=== PATIENT | male | born 1975 | race Caucasian/White ===

== ENCOUNTER 2017-01-10 20:41 | Emergency (ER) | payer OTHER ==
[~2017-01-10] VITALS: Ht 182.9 cm; Wt 81.9 kg
[2017-01-10 21:07] VITALS: TEMP 36.7; O2SAT 96; Ht 182.9 cm; Wt 81.9 kg
[2017-01-10] MEDS ORDERED: LISI-461 PO (21:46)
--- NOTE | 2017-01-10 21:46 | EMERGENCY ROOM VISIT NOTE ---
History First contact with patient: 21:27 Chief Complaint: FINGER PAIN Stated Complaint: LEFT THUMB SMASHED WITH HAMMER History of Present Illness The patient is a 41 year old male who presents to the Emergency Room with complaints of left thumb pain after accidentally hitting the thumb with a hammer prior to arrival. 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 He notes instant swelling. He also has some tingling in the distal aspect of the thumb. He did not take anything for pain. He denies any pain back into the hand or wrist. Review of Systems 6 system review negative. Please see pertinent positives in the history of present illness section. Past Medical/Surgical History Hypertension Cholecystectomy Family History Diabetes, hypertension Social History Smoking Status: Current Every Day Smoker Drug Use: none Marital Status: Housing Status: lives with significant other Current/Historical Medications Scheduled Atorvastatin (Lipitor), 20 MG PO DAILY Citalopram Hydrobromide (Citalopram Hydrobromide), 20 MG PO DAILY Lisinopril (Zestril), 10 MG PO DAILY Omeprazole (Prilosec), 40 MG PO DAILY Physical Exam Vital Signs Date Time Temp Pulse Resp B/P (MAP) Pulse Ox O2 Delivery O2 Flow Rate FiO2 01/10/17 21:07 36.7 70 16 124/68 96 Room Air Physical Exam VITALS: Vitals are noted on the nurse's note and reviewed by myself. Vital signs stable. GENERAL: 41-year-old male, in no acute distress, nondiaphoretic, well-developed well-nourished. SKIN: The skin was intact HEAD: Normocephalic, atraumatic MUSCULOSKELETAL: L THUMB: Swelling and tenderness noted over the interphalangeal joint. Very limited range of motion. Capillary refill less than 2 seconds. Well-healing incisional scar noted over the interphalangeal joint sensation in the distal aspect of the finger is intact. NEURO: Patient was alert and oriented to person place and time. Normal sensation to touch. No focal neurological deficits. Medical Decision & Procedures ER Provider Diagnostic Interpretation: LEFT THUMB RADIOGRAPHS CLINICAL HISTORY: Left thumb pain following injury. COMPARISON: None FINDINGS: Alignment of the left thumb is anatomic. There is minimal ossific/calcific density adjacent to the proximal phalanx of the left thumb. No acute fracture is identified. There is soft tissue swelling of the left thumb. IMPRESSION: 1. No acute fracture or dislocation of the left thumb. 2. Minimal calcific/ossific density adjacent to the proximal phalanx of the left thumb. This is age indeterminate but probably not acute. This could be correlated with previous surgical/trauma history. Electronically signed by: Akhil Morel M.D. 01/10/2017 10:52 PM Dictated Date/Time: 01/10/2017 10:49 PM The status of this report is Signed. Draft = Not yet reviewed or approved by Radiologist. Signed = Reviewed and approved by Radiologist. ED Course The patient was seen and examined He declined pain medication Imaging was performed and reviewed A metal splint was applied. The findings were discussed the patient. He voiced understanding, and was discharged in good condition Medical Decision Differential diagnosis: Contusion, fracture, subungual hematoma This patient is a pleasant 41-year-old female that presents emergency department with thumb pain after hitting it with a hammer. He was concerned given his recent surgery and the thumb. On exam, he was tender over the interphalangeal joint. Imaging was performed and showed no acute fracture. He was given a metal splint for comfort. He was instructed to take ibuprofen for pain, and apply ice and elevate the thumb as much as possible over the next 48 hours. He will follow-up with his hand surgeon next week. Medication Reconcilliation Current Medication List: was personally reviewed by me Blood Pressure Screening Patient's blood pressure: Normal blood pressure Impression Primary Impression: Thumb contusion Departure Information Dispostion Home / Self-Care Referrals No Doctor, Assigned (PCP) Patient Instructions My [facility] Additional Instructions You were evaluated in the emergency department for some pain. X-rays did not show any evidence of fracture Please apply ice for 20 minute intervals and elevate the thumb as much as possible over the next 48 hours. Rest the thumb in a splint for the next 48 hours. Ibuprofen 600 mg every 8 hours as needed for pain If there is no improvement, please see your orthopedic surgeon within the next week. You are welcome to return to the emergency department with any new or worsening symptoms
[2017-01-10] MEDS ORDERED: ATOR-22 PO (21:47)
[2017-01-10] MEDS ORDERED: PRLSR20 PO (21:48)
[2017-01-10] MEDS ORDERED: OMEP40CA41 PO (21:58)
[2017-01-10] MEDS ORDERED: CITA20TA4 PO (22:04)
--- NOTE | 2017-01-10 22:53 | DIAGNOSTIC IMAGING REPORT ---
LEFT THUMB RADIOGRAPHS CLINICAL HISTORY: Left thumb pain following injury. COMPARISON: None FINDINGS: Alignment of the left thumb is anatomic. There is minimal ossific/calcific density adjacent to the proximal phalanx of the left thumb. No acute fracture is identified. There is soft tissue swelling of the left thumb. IMPRESSION: 1. No acute fracture or dislocation of the left thumb. 2. Minimal calcific/ossific density adjacent to the proximal phalanx of the left thumb. This is age indeterminate but probably not acute. This could be correlated with previous surgical/trauma history. Electronically signed by: Akhil Morel M.D. 01/10/2017 10:52 PM Dictated Date/Time: 01/10/2017 10:49 PM
[2017-01-10 23:15] VITALS: BP 128/76; PULSE 68
== END 2017-01-10 23:15 | disposition home or self-care (01) ==
LOC: C.EDB 20:45 → C.EDD 23:15
DX: S60.012A Contusion of left thumb without damage to nail, initial encounter (principal); W22.8XXA Striking against or struck by other objects, initial encounter; I10 Essential (primary) hypertension; F17.200 Nicotine dependence, unspecified, uncomplicated; Z79.899 Other long term (current) drug therapy; Z90.49 Acquired absence of other specified parts of digestive tract

== ENCOUNTER → 2017-12-07 | Day surgery (SDC) | payer OTHER ==
[2017-12-06 09:57] VITALS: Ht 177.2 cm; Wt 76.4 kg
[~2017-12-07] VITALS: Ht 177.2 cm; Wt 76.4 kg
[~2017-12-07] MED LIST: ATOR-22 PO; CHOL1CAP95 PO; FENTANYL CITRATE INJ 50 MCG/1 ML 2 ML VIAL ONE; FLUO40CA8 PO; HYDR25TA4 PO; LIDOCAINE HCL 2% 2 ML VIAL (20MG/ML) ONE; LISI5TAB PO; MECL1TAB42 PO; MIDAZOLAM HCL 1 MG/ML 2ML VIAL ONE; OMEP40CA41 PO; PROPOFOL IV EMULSION 10 MG/ML 20 ML VIAL ONE; SODIUM CHLORIDE 0.9% 500ML 500 ML IV ONE
--- NOTE | 2017-12-07 09:41 | Endo History and Physical ---
History & Physical Date of Service: Dec 07, 2017. Chief Complaint: Rectal bleeding, hemorrhoids Referring Physician: AIDAN Walsh History of Present Illness 42 yo presenting for evaluation of painless rectal bleeding for colonoscopy Past Surgical History Hx Cardiac Surgery: No Hx Internal Defibrillator: No Hx Pacemaker: No Hx Abdominal Surgery: Yes (ANNIKA) Hx of Implantable Prosthesis: No Hx Post-Op Nausea and Vomiting: No Hx Cancer Surgery: No Hx Thoracic Surgery: No Hx Orthopedic: Yes (LEFT ARM RECONSTRUCTION, RT SHOULDER RECONSTRUCTION) Hx Urinary Tract Surgery: No Family History Colon CA Social History Smoking Status: Current Every Day Smoker Hx Substance Use: Yes (MARIJUANA OCCASIONALLY (ADVISED)) Hx Alcohol Use: No Allergies Coded Allergies: No Known Allergies (Unverified , 12/06/17) Current Medications Reported Home Medications Medications Dose Route/Sig Max Daily Dose Days Date Category Meclizine Hcl 25 Mg Tab 1 Tab PO TID PRN 12/06/17 Reported Prozac (Fluoxetine HCl) 40 Mg Cap 40 Mg PO QAM 12/06/17 Reported Lipitor (Atorvastatin Calcium) 20 Mg Tab 20 Mg PO QAM 12/06/17 Reported Prinivil (Lisinopril) 5 Mg Tab 5 Mg PO QAM 12/06/17 Reported Vitamin D3 (Cholecalciferol) 50,000 Unit Cap 1 Cap PO WK 12/06/17 Reported Prilosec (Omeprazole) 40 Mg Cap 40 Mg PO QAM 12/06/17 Reported Hctz (Hydrochlorothiazide) 25 Mg Tab 25 Mg PO QAM 12/06/17 Reported Vital Signs Weight (Kilograms): 76.36 Height (Feet): 5 Height (Inches): 9.75 Date Time Temp Pulse Resp B/P (MAP) Pulse Ox O2 Delivery O2 Flow Rate FiO2 12/07/17 09:06 36.6 72 18 122/82 (95) 97 Room Air Physical Exam General Appearance: WD/WN, no apparent distress Respiratory/Chest: Respiratory effort: no dyspnea Auscultation: breath sounds normal, CTA except as noted Cardiovascular: Apical Impulse: not displaced Heart Auscultation: RRR, normal S1, normal S2 Abdomen: Bowel Sounds: normal Inspection & Palpation: soft, non-distended, no masses Assessment and Plan 42 yo presenting for evaluation of painless rectal bleeding Proceed with colonoscopy
--- NOTE | 2017-12-07 10:34 | GI REPORT ---
Patient Name: Jacob Dill Procedure Date: 12/07/2017 9:28 AM Date of : 1975 Admit Type: Outpatient Age: 42 Gender: Male Attending MD: Asif Cespedes MD Procedure: Colonoscopy Providers: Asif Cespedes MD Referring MD: Dana Montanez Indications: Rectal bleeding Medicines: Monitored Anesthesia Care Complications: No immediate complications. Estimated blood loss: None. Estimated Blood Loss: Estimated blood loss: none. Procedure: Pre-Anesthesia Assessment: - Pre-Anesthesia Assessment: - Prior to the procedure, a History and Physical was performed, and patient medications, allergies and sensitivities were reviewed. The patient's tolerance of previous anesthesia was reviewed. Please see Apixio for complete details. - The risks and benefits of the procedure and the sedation options and risks were discussed with the patient. All questions were answered and informed consent was obtained. - Patient identification and proposed procedure were verified prior to the procedure by the physician and the nurse. The procedure was verified in the pre-procedure area in the procedure room. After obtaining informed consent, the endoscope was passed carefully and meticuously under direct vision and only advanced when the lumen was clearly identified, C02 insuflation was utilized throughout the entirity of the procedure. Throughout the procedure, the patient's blood pressure, pulse, and oxygen saturations were monitored continuously. After I obtained informed consent, the scope was passed under direct vision. Throughout the procedure, the patient's blood pressure, pulse, and oxygen saturations were monitored continuously. The scope was introduced through the anus and advanced to the terminal ileum, with identification of the appendiceal orifice and IC valve. The colonoscopy was performed without difficulty. The patient tolerated the procedure well. The quality of the bowel preparation was good. Findings: Four sessile polyps were found in the ascending colon. The polyps were 4 to 7 mm in size. These polyps were removed with a cold snare. Resection and retrieval were complete. A 6 mm polyp was found in the descending colon. The polyp was sessile. The polyp was removed with a cold snare. Resection and retrieval were complete. A 10 mm polyp was found in the sigmoid colon. The polyp was semi-pedunculated. The polyp was removed with a saline injection-lift technique using a hot snare at 20 alfonso. Resection and retrieval were complete using a suction (via the working channel). Two hemostatic clips were successfully placed (MR conditional). Multiple small-mouthed diverticula were found in the sigmoid colon. Internal hemorrhoids were found during retroflexion. The exam was otherwise without abnormality on direct and retroflexion views. Impression: - Four 4 to 7 mm polyps in the ascending colon, removed with a cold snare. Resected and retrieved. - One 6 mm polyp in the descending colon, removed with a cold snare. Resected and retrieved. - One 10 mm polyp in the sigmoid colon, removed using injection-lift and a hot snare. Resected and retrieved. Clips (MR conditional) were placed. - Diverticulosis in the sigmoid colon. - Internal hemorrhoids. - The examination was otherwise normal on direct and retroflexion views. Recommendation: - Discharge patient to home (with escort). - Repeat colonoscopy in 1 year for surveillance based on pathology results. - Return to referring physician as previously scheduled. Asif Cespedes MD 12/07/2017 10:33:55 AM This report has been signed electronically. Note Initiated On: 12/07/2017 9:28 AM Number of Addenda: 0 I attest to the content of the Intraoperative Record and orders documented therein, exceptions below {[id number]}
--- NOTE | 2017-12-07 10:36 | Discharge Instructions ---
Endoscopy Patient Instructions Date / Procedure(s) Performed Dec 07, 2017. Colonoscopy Allergy Information Coded Allergies: No Known Allergies (Unverified , 12/06/17) Discharge Date / Findings Dec 07, 2017. Findings: Four sessile polyps were found in the ascending colon. The polyps were 4 to 7 mm in size. These polyps were removed with a cold snare. Resection and retrieval were complete. A 6 mm polyp was found in the descending colon. The polyp was sessile. The polyp was removed with a cold snare. Resection and retrieval were complete. A 10 mm polyp was found in the sigmoid colon. The polyp was semi-pedunculated. The polyp was removed with a saline injection-lift technique using a hot snare at 20 alfonso. Resection and retrieval were complete using a suction (via the working channel). Two hemostatic clips were successfully placed (MR conditional). Multiple small-mouthed diverticula were found in the sigmoid colon. Internal hemorrhoids were found during retroflexion. The exam was otherwise without abnormality on direct and retroflexion views. Impression: - Four 4 to 7 mm polyps in the ascending colon, removed with a cold snare. Resected and retrieved. - One 6 mm polyp in the descending colon, removed with a cold snare. Resected and retrieved. - One 10 mm polyp in the sigmoid colon, removed using injection-lift and a hot snare. Resected and retrieved. Clips (MR conditional) were placed. - Diverticulosis in the sigmoid colon. - Internal hemorrhoids. - The examination was otherwise normal on direct and retroflexion views. Recommendation: - Discharge patient to home (with escort). - Repeat colonoscopy in 1 year for surveillance based on pathology results. - Return to referring physician as previously scheduled. Provider Instructions Activity Restrictions - No exercising or heavy lifting for 24 hours. - Do not drink alcohol the day of the procedure. - Do not drive a car or operate machinery until the day after the procedure. - Do not make any important decisions or sign important papers in 24 hours after the procedure. Following Day: - Return to full activity which may include returning to work/school. Diet Start your diet with liquids and light foods (jello, soup, juice, toast). Then eat your usual diet if not nauseated. Treatment For Common After Affects For mild abdominal pain, bloating, or excessive gas: - Rest - Eat lightly - Lie on right side Follow-Up Information Follow-up with AIDAN Walsh as scheduled Anesthesia Information What You Should Know You have had a procedure that required some medicine to reduce anxiety and discomfort. This treatment is called moderate sedation. After receiving the treatment, you may be sleepy, but you will be able to breathe on your own. The effects of the treatment may last for several hours. Follow these instructions along with Activity/Diet recommendations noted above: * Do NOT do anything where dizziness or clumsiness would be dangerous. * Rest quietly at home today, then you can be up and about tomorrow. * Have a responsible person stay with you the rest of today. * You may have had an I.V. today. If so, you may take the dressing off later today. Recommendations Call your doctor if: * Trouble breathing * Continuous vomiting for more than 24 hours * Temperature above 101 degrees * Severe abdominal pain or bloating * Pain not relieved by pain medicine ordered * There is increased drainage or redness from any incision * A large amount of rectal bleeding greater than 2-3 tablespoons. (If you had a polyp/s removed or have hemorrhoids, a small amount of blood - from the rectum is to be expected.) * You have any unanswered questions or concerns. IN THE EVENT OF A SERIOUS EMERGENCY, GO TO THE NEAREST EMERGENCY ROOM Your discharge instructions were prepared by provider Asif Cespedes. Patient Instructions Signature Page Jacob Dill Patient (or Guardian) Signature/Date: I have read and understand the instructions given to me by my caregivers. Caregiver/RN/Doctor Signature/Date: The above-named patient and/or guardian has received patient instructions on this date. + Original Patient Signature Page (only) stays with chart. Please make copy for patient.
--- NOTE | 2017-12-07 10:45 | Anesthesiology Progress Note ---
Anesthesia Post Op Note Date & Time Dec 07, 2017 at 10:45 Vital Signs Pain Intensity: 0 Vital Signs Past 12 Hours Date Time Temp Pulse Resp B/P (MAP) Pulse Ox O2 Delivery O2 Flow Rate FiO2 12/07/17 10:28 71 14 106/53 (70) 97 Room Air 12/07/17 09:06 36.6 72 18 122/82 (95) 97 Room Air Notes Mental Status: alert / awake / arousable, participated in evaluation Pt Amnestic to Procedure: Yes Nausea / Vomiting: adequately controlled Pain: adequately controlled Airway Patency, RR, SpO2: stable & adequate BP & HR: stable & adequate Hydration State: stable & adequate Anesthetic Complications: no major complications apparent
[2017-12-07 10:58] VITALS: BP 123/84; PULSE 51; O2SAT 99
== END | disposition home or self-care (01) ==
LOC: C.GI 08:36
PROVIDERS: ATTEND Internal Medicine
DX: K62.5 Hemorrhage of anus and rectum (principal); D12.2 Benign neoplasm of ascending colon; D12.4 Benign neoplasm of descending colon; D12.5 Benign neoplasm of sigmoid colon; K57.30 Diverticulosis of large intestine without perforation or abscess without bleeding; K64.8 Other hemorrhoids; J45.909 Unspecified asthma, uncomplicated; I10 Essential (primary) hypertension; Z80.0 Family history of malignant neoplasm of digestive organs; F17.200 Nicotine dependence, unspecified, uncomplicated; F12.90 Cannabis use, unspecified, uncomplicated; Z79.899 Other long term (current) drug therapy